=== PATIENT | female | born 1985 | race African-American/Black ===

== ENCOUNTER 2017-07-15 02:43 | Emergency (ER) | payer MEDICARE ==
[~2017-07-15] VITALS: Ht 160 cm; Wt 88.2 kg
[2017-07-15 03:13] LABS: HEMATOCRIT 36.1 % (36.0-46.0); HEMOGLOBIN 12.2 G/DL (11.9-15.5); MCH 30.4 PG (29.0-34.0); MCHC 33.8 G/DL (30.0-36.0); PLATELET COUNT 353 K/uL (156-360); RBC DIS.WIDTH-CV 14.3 % (11.8-14.6); RBC DIS.WIDTH-SD 46.9 % (39-53); RED BLOOD COUNT 4.01 M/uL (3.80-5.20); WHITE BLOOD COUNT 12.4 K/uL (4.1-10.2)
[2017-07-15 03:23] LABS: CHLORIDE 104 mEq/L (99-109); POTASSIUM 4.3 mEq/L (3.7-5.4); SODIUM 138 mEq/L (136-147)
[2017-07-15 03:26] LABS: GLUCOSE 97 mg/dL (70-99)
[2017-07-15 03:28] LABS: CREATININE 0.9 mg/dL (0.6-1.3)
[2017-07-15 03:29] LABS: GFR ESTIMATE (CALCULATED) > 59 mL/min/; UREA NITROGEN (BUN) 7 mg/dL (9-23)
[2017-07-15 04:02] LABS: TROP-I INTERPRETATION NEGATIVE; TROPONIN-I 0.02 ng/mL (0.0-0.30)
[2017-07-15] MEDS ORDERED: PROVENTIL HFA6.7 GM IH (04:21)
[2017-07-15] MEDS ORDERED: HYCODAN SYRUP480 ML PO (04:21)
[2017-07-15] MEDS ORDERED: PREDNISONE50 MG PO (04:21)
[2017-07-15 04:34] VITALS: BP 132/74
== END 2017-07-15 04:35 | disposition home or self-care (01) ==
LOC: EME 02:43
DX: J20.9 Acute bronchitis, unspecified (principal); J06.9 Acute upper respiratory infection, unspecified; I45.10 Unspecified right bundle-branch block
CPT/HCPCS: 71046; 80048; 84484; 85027; 85379; 93005; 94640; 99281; 99284; J7512